=== PATIENT | female | born 1935 | race Asian ===

== ENCOUNTER 2020-09-20 19:40 | Emergency (ER) | payer OTHER ==
[~2020-09-20] VITALS: Ht 152.4 cm; Wt 57.6 kg
[2020-09-20 19:41] VITALS: BP 148/82; TEMP 98.9
[2020-09-20 20:22] LABS: PLATELET COUNT 165 K/uL (152-353)
[2020-09-20 20:31] LABS: POTASSIUM 4.6 mmol/L (3.6-5.2)
[2020-09-21] MEDS ORDERED: DIVA125C PO (00:35)
[2020-09-21] MEDS ORDERED: FLUPHENAZINE25 MG/ML IM (00:37)
[2020-09-21] MEDS ORDERED: GLYCOPYRROLATE PO (00:40)
[2020-09-21] MEDS ORDERED: ZESTRIL30 MG PO (00:41)
[2020-09-21] MEDS ORDERED: LORA0.5T17 PO (00:41)
[2020-09-21] MEDS ORDERED: BOOST PO (00:44)
== END 2020-09-20 22:05 | disposition still patient (30) ==
LOC: ED 19:50
PROVIDERS: Emergency Medicine
DX: F25.8 Other schizoaffective disorders (principal); U07.1 COVID-19; Z04.6 Encounter for general psychiatric examination, requested by authority
CPT/HCPCS: 36415; 80053; 85027; 87635; 93005; 99283; U0003